=== PATIENT | female | born 1955 | race African-American/Black ===

== ENCOUNTER 2021-12-19 10:38 | Emergency (ER) | payer MEDICARE, SELFPAY ==
--- NOTE | ~2021-12-19 | XR_ITS ---
XR hand LT min 3V 12/19/2021 11:02 INDICATION: Left hand pain PROCEDURE: 3 views left hand COMPARISON: No prior studies for comparison. FINDINGS: Fracture, dislocation or subluxation is not identified. There is mild polyarticular osteoar thritis. The soft tissues appear within normal limits. No foreign bodies are identified. IMPRESSION: 1: NO ACUTE BONE OR JOINT ABNORMALITY IDENTIFIED. Reviewed, dictated and finalized at location A.
[2021-12-19 10:51] VITALS: BP 156/80; PULSE 84; RESP 20; TEMP 36.1; O2SAT 97
--- NOTE | 2021-12-19 12:32 | ED.GENADULT ---
HPI - General Adult General Chief complaint: Extremity Injury, Upper Stated complaint: left pinky injury Source: patient Mode of arrival: ambulatory Limitations: no limitations History of Present Illness HPI narrative: Patient presents for evaluation of pain in the fifth digit of the left hand for the last week. She states her dog's leash got wrapped around her hand and pulled the fifth digit. She has noted constant pain since that time. Pain is rated 8/10 and she describes it as shooting , radiating across the hand. She denies any paresthesias. Movement make her pain worse. She is right hand dominant. She has not tried any therapies to assist with her symptoms. No additional complaints or concerns. Related Data Home Medications Medication Instructions Recorded Confirmed amlodipine 5 mg PO DAILY 12/19/21 12/19/21 aspirin 81 mg PO DAILY 12/19/21 12/19/21 candesartan 32 mg PO DAILY 12/19/21 12/19/21 hydrochlorothiazide 25 mg PO DAILY 12/19/21 12/19/21 omeprazole 40 mg PO DAILY 12/19/21 12/19/21 pravastatin 40 mg PO DAILY 12/19/21 12/19/21 tizanidine 4 mg PO Q6-8H PRN 12/19/21 12/19/21 Allergies Allergy/AdvReac Type Severity Reaction Status Date / Time No Known Allergies Allergy Verified 12/19/21 11:17 Review of Systems Review of Systems: CONSTITUTIONAL: Denies fever, chills, or sweats. EYES: Denies visual changes, redness, or discharge. ENT: Denies rhinorrhea, congestion, sore throat, or otalgia. CARDIOVASCULAR: Denies chest pain, palpitations, or edema. RESPIRATORY: Denies cough or dyspnea. GASTROINTESTINAL: Denies abdominal pain, nausea, vomiting, or diarrhea. GENITOURINARY: Denies dysuria or hematuria. SKIN: Denies rash or itching. MUSCULOSKELETAL:Reports pain in fifth digit of left hand. Denies back pain NEUROLOGIC: Denies headache, numbness, dizziness, or weakness. PSYCHIATRIC: Denies anxiety or depression. [facility] Past Medical History Medical History Hyperlipidemia Hypertension Surgical History Surgical History (Updated 12/19/21 @ 12:35 by Shai Giraldo, SUJIT, ) History of arthroscopic surgery of shoulder History of carpal tunnel release History of left knee replacement Family History Family History Father Rheumatoid arthritis Mother Congestive heart failure Social History Social History (Updated 12/19/21 @ 12:36 by SUJIT Palma, ) Substance use: never Living arrangements: with family Gender identity (if verbalized by the patient): Female Sexual Orientation (if Verbalized by the Patient): Straight or Heterosexual Spiritual care concerns: No Exam Narrative: GENERAL: Well-appearing, well-nourished, and in no acute distress. HEAD: Normocephalic, atraumatic. EYES: PERRLA and EOMI. ENT: Nares clear, no rhinorrhea or epistaxis. Mucous membranes moist. Oropharynx without tonsillar hypertrophy exudate or other lesions. Bilateral TMs pearly valenzuela nonbulging NECK: Supple. No adenopathy or masses. No carotid bruits or JVD CHEST: Clear to auscultation. No respiratory distress. No wheezes rales or rhonchi HEART: Regular rate and rhythm. No murmur heard. Normal peripheral pulses. ABDOMEN: Soft, nontender, nondistended, normal active bowel sounds. EXTREMITIES: Full range of motion of the left wrist and all joints of digits of the left hand. Tenderness through proximal phalanx of fifth digit of the left hand. There is no crepitus or deformity. No significant swelling. 5 out of 5 hand bounty hunter strength bilaterally. SKIN: Warm, dry, no rash. NEURO: No focal deficits. Alert and oriented x3. PSYCH: Normal mood and affect. Course Course Emergency Course: This is a 66-year-old female who presented with complaints of left hand pain following an injury a week ago. X-ray was negative for fracture. Exam is consistent with sprain. Provided with finger
== END 2021-12-19 12:44 | disposition home or self-care (01) ==
PROVIDERS: Emergency Provider Nurse Practitioner; PCP Physician Assistant
DX: S63.617A Unspecified sprain of left little finger, initial encounter (principal); X58.XXXA Exposure to other specified factors, initial encounter; E78.5 Hyperlipidemia, unspecified; I10 Essential (primary) hypertension; Z96.652 Presence of left artificial knee joint
CPT/HCPCS: 29130; 73130; 99213; G0463